=== PATIENT | male | born 1980 | race Caucasian/White ===

== ENCOUNTER 2022-06-20 07:04 | Outpatient (CLI) | payer OTHER, SELFPAY ==
--- NOTE | 2022-06-20 07:23 | MR_ITS ---
WS: [id number] MRI RIGHT SHOULDER HISTORY: RT SHOULDER INJURY COMPARISON: None available. TECHNIQUE: Multiplanar sequences of the shoulder joint are submitted. Very minimal AC joint arthritis. Capsule appears intact. There is a very small amount of fluid in the subacromial bursa. There is also mild subacromial impingement by osteophyte along the distal undersu rface. No os acromion. Biceps tendon in normal position. Well-circumscribed T2 hyperintense lesion me asuring 8 mm in the humeral head is probably an enchondroma. No rotator cuff edema or tear. There is no muscle atrophy or edema. Glenohumeral joint is normal. No labral tears are identified. Although incompletely imaged there is edema within the pectoralis muscles of the RIGHT chest wall. Th e tendon is not well-visualized as this study was targeted to the shoulder. MR/MR shoulder RT wo con* [id number] IMPRESSION: 1. No rotator cuff tear. 2. Mild subacromial impingement by a small osteophyte. 3. Pectoralis muscle edema. Contusion type injury centered within the pectoral is muscle of the RIGHT chest wall. Only a small portion of the pectoralis muscl e as visualized but there is edema throughout the muscle.
== END 2022-06-20 07:05 | disposition home or self-care (01) ==
PROVIDERS: PCP Family Medicine; Visit Provider Family Medicine
DX: M25.511 Pain in right shoulder (principal); M25.811 Other specified joint disorders, right shoulder
CPT/HCPCS: 73221

== ENCOUNTER 2022-11-20 12:52 | Emergency (ER) | payer OTHER, SELFPAY ==
[2022-11-20 13:13] VITALS: BP 116/75; PULSE 68; TEMP 36.4; O2SAT 95; BMI 27.2
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
[2022-11-20 14:19] VITALS: BP 128/93; PULSE 76; O2SAT 98
--- NOTE | 2022-11-21 09:10 | DCPLANNER ---
follow up manager had message to schedule a follow up appointment for patient with neurology. follow up manager sent patients information to the front office staff at neurology. Patients information will be printed and reviewed. Clinic will call patient with appointment information.
== END 2022-11-20 14:21 | disposition home or self-care (01) ==
PROVIDERS: Emergency Provider Physician Assistant; PCP Family Medicine
DX: R51.9 Headache, unspecified (principal)
CPT/HCPCS: 99282

== ENCOUNTER 2023-03-03 06:48 | Outpatient (CLI) | payer OTHER, SELFPAY ==
--- NOTE | 2023-03-03 07:15 | MR_ITS ---
WS: [id number] MRI HEAD WITH CONTRAST TECHNIQUE: Sagittal T1, T2 axial, T2 axial FLAIR, axial susceptibility weighted imaging, axial diffus ion weighted images, and coronal T2 images were obtained. Pre and post-T1 axial and post T1 coronal i mages. ADC and FSPGR images. CLINICAL INFORMATION: R51.9 - Headache, unspecified COMPARISON: None. FINDINGS: No evidence of restricted diffusion to suggest acute ischemia. Normal posterior fossa. Normal vascula r flow voids at the skull base. No extra-axial fluid collections. Mild mucosal thickening in the para nasal sinuses. Secretions within the RIGHT maxillary sinus. Mastoid air cells are well aerated. Astrid l posterior nasopharynx. No hemosiderin on susceptibly weighted images. Normal optic chiasm and pituitary infundibulum. Tempor al lobes and hippocampal formations are normal in appearance. No abnormal gadolinium enhancement. Nor mal optic chiasm and pituitary infundibulum. Normal dural venous sinuses. IMPRESSION: 1. No evidence of restricted diffusion to suggest acute ischemia. 2. No suspicious intracranial signal normalities. 3. No hemosiderin on susceptibly weighted images. 4. No abnormal gadolinium enhancement. 5. Mild to moderate paranasal sinusitis. 6. Mastoid air cells well aerated.
[2023-03-03] MEDS: gadobenate dimeglumine 20 mL vial IV (08:25)
== END 2023-03-03 06:49 | disposition home or self-care (01) ==
LOC: RAD 06:48
PROVIDERS: PCP Family Medicine; Visit Provider Psychiatry & Neurology Neurology
DX: R51.9 Headache, unspecified (principal); J32.8 Other chronic sinusitis
CPT/HCPCS: 70553; A9577

== ENCOUNTER 2023-06-05 09:08 | Outpatient (CLI) | payer OTHER, SELFPAY ==
--- NOTE | 2023-06-05 09:00 | CT_ITS ---
WS: [id number] CT PARANASAL SINUSES HISTORY: Nasal Congestion TECHNIQUE: Contiguous 2.5 mm axial images obtained through the sinuses. Images are reconstructed in s agittal and coronal planes. All CT scans at [facility] use at least one of these dose optimiz ation techniques: automated exposure control; mA and/or kV adjustment per patient size (includes targ eted exams where dose is matched to clinical indication); or iterative reconstruction. DLP: 382.44 mGy.cm COMPARISON: None available. Frontal sinuses: No air-fluid levels. 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 Osteoma tends towards th e LEFT. Sphenoid sinus: Negative. Ethmoid sinuses: Negative. Maxillary sinus: Very small mucous retention cyst in the floor the LEFT maxillary sinus. Small septa extending through the maxillary sinuses close to the ostiomeatal units. No obstruction. Ostiomeatal unit: Patent. No obstruction. Normal cribriform plate. Nasal bones are negative. No mastoid air cell disease. IMPRESSION: 1. No significant sinus disease. No air-fluid levels. 2. Very small mucous retention cyst floor the LEFT maxillary sinus. 3. Patent ostiomeatal units.
== END 2023-06-05 09:09 | disposition home or self-care (01) ==
LOC: RAD 09:08
PROVIDERS: PCP Family Medicine; Visit Provider Otolaryngology
DX: J34.2 Deviated nasal septum (principal); J32.9 Chronic sinusitis, unspecified
CPT/HCPCS: 70486

== ENCOUNTER 2024-02-03 09:17 | Outpatient (CLI) | payer OTHER, SELFPAY ==
--- NOTE | 2024-02-03 09:15 | MR_ITS ---
WS: [id number] MRA CAROTID WITHOUT AND WITH GADOLINIUM ENHANCEMENT TECHNIQUE: Axial 2-D TOF and gadolinium bolus images obtained with axial images and axial, sagittal, and coronal 2-D reformatted images. CLINICAL INFORMATION: R20.0 - Anesthesia of skin COMPARISON: None. FINDINGS: RIGHT: RIGHT common carotid artery is patent. No significant RIGHT ICA stenosis. RIGHT ICA is patent to the skull base. LEFT: LEFT common carotid artery is patent. No significant LEFT ICA stenosis. LEFT ICA is patent to t he skull base. LEFT dominant vertebral artery. Smaller but patent RIGHT vertebral artery. Proximal basilar artery is patent. MR/MR angio neck w con* [id number] IMPRESSION: Normal neck MRA.
--- NOTE | 2024-02-03 10:00 | MR_ITS ---
WS: [id number] MRA HEAD TECHNIQUE: Axial 3-D TOF images obtained with axial images and axial, sagittal, and coronal 2-D refor matted images. CLINICAL INFORMATION: R20.0 - Anesthesia of skin COMPARISON: None. FINDINGS: Distal vertebral arteries are patent. Basilar artery is patent. Normal vascularity to the COUPLING MACHINE OPERATOR territo ry bilaterally. Both ICAs are patent at the skull base. Tiny RIGHT A1 segment. Normal vascularity to the TOM and MCA territories bilaterally. No evidence of proximal flow-limiting stenosis or aneurysm. MR/MR angio head con [id number] IMPRESSION: 1. Normal intracranial MRA.
[2024-02-03] MEDS: gadobenate dimeglumine 20 mL vial 19 ML IV (10:03)
== END 2024-02-03 09:18 | disposition home or self-care (01) ==
LOC: RAD 09:18
PROVIDERS: PCP Family Medicine; Visit Provider Psychiatry & Neurology Neurology
DX: R20.0 Anesthesia of skin (principal); R20.2 Paresthesia of skin
CPT/HCPCS: 70544; 70548

== ENCOUNTER 2024-08-31 11:49 | Emergency (ER) | payer OTHER, SELFPAY ==
--- OUTSIDE RECORDS SUMMARY | 2024-08-31 06:50 | XMS_ITS | Encounter Summary ---
Author Name [facility] Address [address] [place] [address] Care Team Providers Care Detail Sergeant Name Role Phone IKE KAYE Primary Care Provider Unavail able Selected Encounter This section includes the information on record at [facility] for the Encounter. Date/Time Encounter Type Encounter Description Reason Pro vider Source Aug 31, 2024 11:50 AM Outpatient Encounter TELEPHONE TRIAGE [facility] Encounter Template Text not used by [facility] Plan of Treatment: Future Appointments (+ 6 months) and Future Tests (+/- 45 days) The Plan of Treatment section includes future care activities for the patient from all [facility] treatmentfacilities. This section includes future appointments and future orders which are active, pending or scheduled. Future Appointments This section includes appointments that were scheduled to occur 6 months from the date of the Encounter, up to a maximum of 20 appointments. The data comes from all [facility] treatment facilities. Appointment Date/Time Appointment Type Appointme nt Facility Name Sep 15, 2024 09:30 AM AMBULATORY - MEDICINE [facility] Encounter Notes: All associated encounter notes This section contains the clinical notes associated to the Encounter. Date/Time Encounter Note(s) Provider Source Aug 31, 2024 11:50 AM RN PROGRESS NOTE: LOCAL TITLE: CCC: CLINICAL TRIAGE STANDARD TITLE: RN PROGRESS NOTE DATE OF NOTE: AUG 31, 2024@11:50:25 ENTRY DATE: AUG 31, 2024@11:50:26 AUTHOR: PRACHT,KAHLA M EXP COSIGNER: URGENCY: STATUS: COMPLETED Caller Verification Call Back Number: [phone] Caller/Recipient Relation to Patient: Self Caller Name: ADRIAN ALARCON Emergency Contact: JIMMY ALARCON Triage Summary Conducted triage/discussed symptoms Utilized the Triage Tool: Yes Chief Complaint: Ankle Injury Nurse's Recommendation / WHEN: Now Nurse's Recommendation / WHERE: ED Other Nursing Plan and Disposition Referred patient to higher level of care Instructed to go to Emergency Room (ER) Advised of Financial Disclaimer: Patient advised that recommendation for care provided during the call does not constitute an approval or authorization for payment by the [facility] or its staff. Patient advised to report a community ED visit to the [facility] Office of Community Care at within 72 hours. Other course(s) of action Generated msg to PACT/Provider Nurse Summary Nurse Summary: says he was playing tether ball and stepped in a 3-4 hole and heard his ankle pop. He said his left ankle is swelling. He rates his pain a 6/10 and says it is difficult to bar weight on his left ankle. He is wanting to go to the nearest ER. The [facility] ER is more than an hour away. Provided the National reporting number for going outside the [place] . Clinical Contact Center Codes Clinic/Location: 5 PB PHONE [facility] RN Decision Support System Output: Triage Complete Triage Date: 08/31/2024, 11:40 AM Triage Note: Decision Support Tool Used: ClearTriage Protocol Used: Ankle Injury Protocol-Based Disposition: See Provider within 24 Hours Video visit offered and caller accepted Positive Triage Question: * [1] MODERATE pain (e.g., interferes with normal activities, limping) AND [2] high-risk adult (e.g., age > 60 years, osteoporosis, chronic steroid use) Care Advice Discussed: * Use a Cold Pack for Pain, Swelling, or Bruising * Use Heat on Area After 48 Hours * Elevate the Injured Ankle * Limit Weight-Bearing on Injured Ankle - Try not to put any weight on the injured ankle. - Reason: To prevent pain and in case there is a more serious injury. * Reasons To Call Back - You become worse Negative Triage Questions: * Serious injury with multiple fractures (broken bones) * [1] Major bleeding (e.g., actively dripping or spurting) AND [2] can't be stopped * Amputation * Bone sticking through the skin * Looks like a dislocated joint (very crooked or deformed) * Sounds like a life-threatening emergency to the triager * Bullet wound, stabbed by knife, or other serious penetrating wound * Skin is split open or gaping (or length > 1/2 inch or 12 mm) * [1] Bleeding AND [2] won't stop after 10 minutes of direct pressure (using correct technique) * [1] Dirt in the wound AND [2] not removed with 15 minutes of scrubbing * Can't stand (bear weight) or walk * Sounds like a serious injury to the triager * [1] New numbness (loss of sensation) of foot or toe(s) AND [2] present now * [1] SEVERE pain (e.g., excruciating) AND [2] not improved 2 hours after pain medicine/ice packs IMPORTANT: This note was created by [facility] Clinical Contact Center staff. Please do not alert the staff member by adding them as a signer for future communications. Alerts are not monitored by this user. /es/ GERA GOLD RN Signed: 08/31/2024 11:50 Receipt Acknowledged By: 08/31/2024 11:54 /es/ [facility] 08/31/2024 11:51 /es/ Melissa Panchal RN [place] [facility], [facility] [place] [facility]
--- NOTE | 2024-08-31 11:51 | XR_ITS ---
WS: [id number] Exam: XR ankle LT min 3V* [id number] Date/Time of Exam: 08/31/2024 11:51 AM Reason For Exam: injury No fracture. Lateral soft tissue swelling. The ankle mortise is equidistant. XR/XR ankle LT min 3V* [id number] IMPRESSION: 1. Lateral soft tissue swelling-no acute fracture.
[2024-08-31 11:58] VITALS: BP 124/73; PULSE 70; RESP 16; TEMP 36.3; O2SAT 97; BMI 27.1
--- OUTSIDE RECORDS SUMMARY | 2024-08-31 12:30 | XMS_ITS | Continuity of Care Document ---
Author Name [facility] Organization [facility] Care Team Providers Care Floor Layer Apprentice Name Role Phone [facility] Unavailable Unavailable Problems Combined list of problems from Department of [facility] and [facility] facilities. It does not include entries that were removed or entered in error. Problem Status Onset Date Problem Type Date of Resolution Comments Source Allergic Rhinitis ([facility] [id number]) Active Condition [facility] [place] [facility]xiety ([facility] [id number]) Active Condition [facility] [place] [facility] Depression ([facility] 45361077) Active Condition [facility] Insomnia Active [place] [facility] Lumbar radiculopathy Active [place] [facility] Migraine Active Condition [facility] Sciatica Active Condition [facility] Sleep apnea Active Condition [facility] Tinnitus Active Condition [facility] Chronic post-traumatic stress disorder Inactive Condition 04/24/2024 [facility] [place] [facility] Diagnosis: ICD-10-CM F33.0 Major depressive disorder, recurrent, mild Active Diagnosis [facility] Diagnosis: ICD-10-CM F32.A Depression, unspecified Active Diagnosis [facility] Diagnosis: ICD-10-CM F33.1 Major depressive disorder, recurrent, moderate Active Diagnosis [facility] Medications Combined list of outpatient medications from Department of [facility] and [facility] facilities.Medications provided include 1) outpatient medications from the last 15 months, and 2) patient-reported medications. Medication Details Route Status Patient Instructions Prescription Expires Prescription Number Last Dispense Date Ordering Provider Order Date Order Qty Source ALPRAZOLAM 0.5MG TAB TAKE ONE TABLET BY MOUTH TWICE DAILY NEEDED FOR ANXIETY ORAL DISCONT INUED BY PROVIDE R 10/25/2024 [id number] 5 Carli KAYE R 2024 60 [facility] BUPROPION HCL 150MG 24HR TAB,SA TAKE ONE TABLET BY MOUTH ONCE A DAY FOR DEPRESSI ON SWALLOW WHOLE - DO NOT CRUSH OR CHEW. ORAL ACTIVE 04/25/2025 [id number] Carli KAYE R 2024 90 [facility] BUPROPION HCL SR (bupropion HCl), 150 MG, TAB SR 12H, ORAL, [employer] 100 ea. BOTTLE Active [id number] 2023 30 Pharmac y Data Transac tion Service Facilit y BUPROPION HCL SR (bupropion HCl), 150 MG, TAB SR 12H, ORAL, [employer], 100 ea. BOTTLE Cancele d [id number] : 2023 0 Pharmac y Data Transac tion Service Facilit y CHOLECALCIF JEROD 10MCG (400UNIT) TAB TAKE ONE TABLET BY MOUTH ONCE A DAY FOR VITAMIN D DEFICIEN CY ORAL HOLD 04/30/2025 [id number] 5 Carli KAYE R 2024 100 [facility] CHOLECALCIF JEROD 50MCG (2,000UNIT) TAB TAKE TWO TABLETS BY MOUTH ONCE A DAY FOR VITAMIN D DEFICIEN CY ORAL ACTIVE 05/05/2025 [id number] Isela CARBAJAL Q 2024 200 [facility] EMGALITY PEN (galcanezum ab-gnlm), 120 MG/ML, PEN INJCTR, SUBCUT, [employer] 1 ml SYRINGE Active [id number] 2023 1 Pharmac y Data Transac tion Service Facilit y EMGALITY PEN (galcanezum ab-gnlm), 120 MG/ML, PEN INJCTR, SUBCUT, [employer] 1 ml SYRINGE Active [id number] 2023 1 Pharmac y Data Transac tion Service Facilit y EMGALITY PEN (galcanezum ab-gnlm), 120 MG/ML, PEN INJCTR, SUBCUT, [employer] 1 ml SYRINGE Active [id number] 2023 2 Pharmac y Data Transac tion Service Facilit y ERGOCALCIFE ROL 1,250MCG (50,000UNIT ) CAP TAKE ONE CAPSULE BY MOUTH EVERY WEEK FOR VITAMIN D DEFICIEN CY ORAL 08/02/2024 [id number] Isela CARBAJAL OHN Q 2024 12 [facility] FLUTICASONE PROPIONATE 50MCG/SPRAY SOLN,NASAL, 16GM INSTILL 1 SPRAY IN NOSTRIL( S) ONCE A DAY FOR RHINITIS (MUST BE USED DIRECTED FOR MINIMUM OF 21 DAYS TO PROVIDE ADEQUATE BENEFITS ) NASAL ACTIVE 04/25/2025 [id number] 5 Carli KAYE R 2024 3 [facility] FOLIC ACID 1MG TAB TAKE ONE TABLET BY MOUTH ONCE A DAY FOR FOLIC ACID SUPPLEME NTATION ORAL ACTIVE 05/05/2025 [id number] 5 Isela CARBAJALN Q 2024 100 [facility] GABAPENTIN (GABAPENTIN ), 300 MG, CAPSULE, ORAL, ACTACustora PHARMA,, 500 ea. BOTTLE Active [id number] 2023 90 Pharmac y [facility] Service [facility]ilit y GABAPENTIN 300MG CAP TAKE ONE CAPSULE BY MOUTH THREE TIMES A DAY NEEDED FOR NERVE PAIN ORAL ACTIVE 04/25/2025 [id number] 5 Carli KAYE R 2024 270 [facility] HYDROXYZINE HCL (hydroxyzin e HCl), 25 MG, TABLET, ORAL, RISING [employer]ARM, 1000 ea. BOTTLE Active [id number] 2023 120 Pharmac y Data Trans[facility] tion Service Facilit y HYDROXYZINE HCL 25MG TAB TAKE ONE TABLET BY MOUTH AT BEDTIME NEEDED FOR ANXIETY *MAY CAUSE DROWSINE SS* ORAL ACTIVE 04/25/2025 [id number] 5 Carli KAYE R 2024 90 [facility] PRAZOSIN HCL (prazosin HCl), 2 MG, CAPSULE, ORAL, AUROB[employer]O PHARM, 100 ea. BOTTLE Cancele d [id number] : 2023 0 Pharmac y Data Transac tion Service Facilit y PRAZOSIN HCL (prazosin HCl), 2 MG, CAPSULE, ORAL, LIFESTAR PHARMA, 1000 ea. BOTTLE Active [id number] 2023 60 Pharmac y Data Transac tion Service Facilit y PRAZOSIN HCL (prazosin HCl), 2 MG, CAPSULE, ORAL, NOVITIUM/AN I PH, 100 ea. BOTTLE Cancele d [id number] : 2023 0 Pharmac y Data Transac tion Service Facilit y PRAZOSIN HCL 2MG CAP TAKE THREE CAPSULES BY MOUTH AT BEDTIME FOR NIGHTMAR ES MAY CAUSE DIZZINES S OR DROWSINE SS. ORAL ACTIVE 07/19/2025 [id number] 5 GROVER DE LEON R 2024 270 [facility] PRAZOSIN HCL 2MG CAP TAKE TWO CAPSULES BY MOUTH AT BEDTIME NEEDED FOR NIGHTMAR ES MAY CAUSE DIZZINES S OR DROWSINE SS. ORAL DISCONT INUED (EDIT) 05/17/2025 [id number] 5 GROVER DE LEON R 2024 180 [facility] PRAZOSIN HCL 2MG CAP TAKE TWO CAPSULES BY MOUTH AT BEDTIME NEEDED FOR NIGHTMAR ES MAY CAUSE DIZZINES S OR DROWSINE SS. ORAL DISCONT INUED 05/17/2025 [id number] GROVER DE LEON R 2024 90 [facility] PRAZOSIN HCL 2MG CAP TAKE ONE CAPSULE BY MOUTH AT BEDTIME NEEDED FOR NIGHTMAR ES MAY CAUSE DIZZINES S OR DROWSINE SS. ORAL DISCONT INUED (EDIT) 04/25/2025 [id number] 5 Carli KAYE R 2024 90 [facility] PROPRANOLOL HCL (propranolo l HCl), 10 MG, TABLET, ORAL, AMNEAL PHARMACE, 1000 ea. BOTTLE Active [id number] 2023 60 Pharmac y Data Transac tion Service Facilit y PROPRANOLOL HCL (propranolo l HCl), 40 MG, TABLET, ORAL, AMNEAL PHARMACE, 1000 ea. BOTTLE Cancele d [id number] : 2023 0 Pharmac y Data Transac tion Service Facilit y PROPRANOLOL HCL (propranolo l HCl), 40 MG, TABLET, ORAL, AMNEAL PHARMACE, 1000 ea. BOTTLE Active [id number] 2023 180 Pharmac y Data Transac tion Service Facilit y SERTRALINE HCL (SERTRALINE HCL), 100MG, TABLET, ORAL, AUROBINDO PHARM, 500 ea. BOTTLE Active [id number] 2023 30 Pharmac y Data Transac tion Service Facilit y SERTRALINE HCL (SERTRALINE HCL), 100MG, TABLET, ORAL, AUROB[employer]O PHARM, 500 ea. BOTTLE Cancele d [id number] : 2023 0 Pharmac y Data Transac tion Service Facilit y SERTRALINE HCL 100MG TAB TAKE TWO TABLETS BY MOUTH EVERY MORNING FOR DEPRESSI ON AND ANXIETY ORAL ACTIVE 05/17/2025 [id number] GROVER DE LEON R 2024 180 [facility] SERTRALINE HCL 100MG TAB TAKE ONE-HALF TABLET BY MOUTH EVERY MORNING FOR DEPRESSI ON ORAL DISCONT INUED (EDIT) 04/25/2025 [id number] 5 Carli KAYE 2024 45 [facility] SUMATRIPTAN SUCCINATE (SUMATRIPTA N SUCCINATE), 100MG, TABLET, ORAL, AUROBINDO PHARM, 9 ea. BLIST PACK Active [id number] 2023 9 Pharmac y Data Transac tion Service Facilit y TIZANIDINE HCL 4MG TAB TAKE ONE TABLET BY MOUTH TWICE DAILY NEEDED FOR SPASTICI TY ORAL ACTIVE 04/25/2025 [id number] Carli KAYE R 2024 180 [facility] TRAZODONE HCL 100MG TAB TAKE ONE TABLET BY MOUTH AT BEDTIME FOR INSOMNIA ORAL ACTIVE 04/25/2025 [id number] 5 Carli KAYE R 2024 90 [facility] Immunizations Combined list of available immunizations from the Department of Defense and Veterans Affairs facilities. Immunization Series Date Given Administered By Site Reaction Lot Number CVX Code Drug Combination Presser Status Comments Source influenza, injectable, quadrivalent- pf 2022 [id number] Unknown complet ed influenza , injectabl e, quadrival ent-pf 12/26/22 Given Ambulat ory Pharmac y influenza, injectable, quadrivalent- pf 2021 [id number] 150 Unknown complet ed influenza , injectabl e, quadrival ent-pf 01/16/22 Given Ambulat ory Pharmac y influenza virus vaccine, inactivated 2021 [id number] [facility] ed influenza virus vaccine, inactivat ed 03/28/21 Given Ambulat ory Pharmac y influenza, injectable, quadrivalent- pf 2021 150 complet ed influenza , injectabl e, quadrival ent-pf 03/28/21 Given Ambulat ory Pharmac y influenza, injectable, quadrivalent, preservative free 2021 FRANCINE, () Not Given influenza , injectabl e, quadrival ent, preservat virgen free DoD INFLUENZA, SPLIT VIRUS, QUADRIVALENT, PF 6 2021 150 complet ed HISTORICA L INFORMATI ON - FROM OTHER REGISTRY, [facility] Influenza, inj, MDCK, quadrivalent- pf 2021 171 complet ed Influenza , inj, MDCK, quadrival ent-pf 03/22/21 Given Ambulat ory Pharmac y Influenza, injectable, MDCK, preservative free, quadrivalent 2021 SHRUTHI, () Not Given Influenza , injectabl e, MDCK, preservat virgen free, quadrival ent DoD influenza virus vaccine, inactivated 2019 [id number] Unknown complet ed influenza virus vaccine, inactivat ed 12/22/19 Given Ambulat ory Pharmac y influenza, injectable, quadrivalent- pf 2019 150 complet ed influenza , injectabl e, quadrival ent-pf 12/20/19 Given Ambulat ory Pharmac y influenza, injectable, quadrivalent, preservative free 2019 LUKE, () Not Given influenza , injectabl e, quadrival ent, preservat virgen free DoD INFLUENZA, RECOMBINANT, QUADRIVALENT, PF 5 2018 185 complet ed HISTORICA L INFORMATI ON - FROM OTHER [facility] influenza, injectable, quadrivalent- pf 2017 150 complet ed influenza , injectabl e, quadrival ent-pf 01/05/18 Given Ambulat ory Pharmac y Influenza, injectable, quadrivalent, preservative free 0 2017 150 (MVX) complet ed Influenza , injectabl e, quadrival ent, preservat virgen free DoD INFLUENZA, SPLIT VIRUS, QUADRIVALENT, PF 4 2017 150 complet ed HISTORICA L INFORMATI ON - FROM OTHER REGISTRY, [facility] influenza, injectable, quadrivalent 2017 [id number] 158 Unknown complet ed influenza , injectabl e, quadrival ent 12/02/17 Given Ambulat ory Pharmac y influenza, injectable, quadrivalent, contains preservative 1 2017 [id number] 158 Unknown (UNK) comple t ed influenza , injectabl e, quadrival ent, contains preservat virgen DoD influenza, injectable, quadrivalent 2017 [id number] 158 Unknown complet ed influenza , injectabl e, quadrival ent 11/23/17 Given Ambulat ory Pharmac y influenza, injectable, quadrivalent, contains preservative 1 2017 [id number] 158 Unknown (UNK) comple t ed influenza , injectabl e, quadrival ent, contains preservat virgen DoD influenza, seasonal, injectable-pf 2016 [id number] 140 Unknown complet ed influenza , seasonal, injectabl e-pf 12/04/16 Given Ambulat ory Pharmac y Influenza, seasonal, injectable, preservative free 1 2016 [id number] 140 Unknown (UNK) comple t ed Influenza , seasonal, injectabl e, preservat virgen free DoD INFLUENZA, SPLIT VIRUS, QUADRIVALENT, PF 3 2016 150 complet ed HISTORICA L INFORMATI ON - FROM OTHER REGISTRY, [facility] influenza, seasonal, injectable-pf 2015 [id number] 140 Unknown complet ed influenza , seasonal, injectabl e-pf 01/27/16 Given Ambulat ory Pharmac y Influenza, seasonal, injectable, preservative free 1 2015 [id number] 140 Unknown (UNK) comple t ed Influenza , seasonal, injectabl e, preservat virgen free DoD influenza, injectable, quadrivalent- pf 2015 150 complet ed influenza , injectabl e, quadrival ent-pf 12/07/15 Given Ambulat ory Pharmac y influenza, injectable, quadrivalent- pf 2015 [id number] 150 Unknown complet ed influenza , injectabl e, quadrival ent-pf 12/07/15 Given Ambulat ory Pharmac y Influenza, injectable, quadrivalent, preservative free 1 2015 [id number] 150 Unknown (UNK) comple t ed Influenza , injectabl e, quadrival ent, preservat virgen free DoD influenza, injectable, quadrivalent, preservative free 2015 MIKAELA, () Not Given influenza , injectabl e, quadrival ent, preservat virgen free DoD INFLUENZA, SPLIT VIRUS, QUADRIVALENT, PF 2 2015 150 complet ed HISTORICA L INFORMATI ON - FROM OTHER REGISTRY, [facility] INFLUENZA, SPLIT VIRUS, TRIVALENT, PRESERVATIVE 1 2014 141 complet ed HISTORICA L INFORMATI ON - FROM OTHER REGISTRY, [facility] influenza, injectable, quadrivalent 2014 [id number] 158 sanofi pasteur complet ed influenza , injectabl e, quadrival ent 12/25/14 Given Ambulat ory Pharmac y influenza, injectable, quadrivalent, contains preservative 1 2014 [id number] 158 Sanofi Pasteur ([facility]) complet ed influenza , injectabl e, quadrival ent, contains preservat virgen DoD measles, mumps and rubella virus vaccine 2 2014 UNK 03 Unknown (UNK) Not Given measles, mumps and rubella virus vaccine DoD varicella virus vaccine 1 2014 UNK 21 Unknown (UNK) Not Given varicella virus vaccine DoD influenza, injectable, quadrivalent- pf 2013 150 complet ed influenza , injectabl e, quadrival ent-pf 01/09/14 Given Ambulat ory Pharmac y influenza, injectable, quadrivalent- pf 2013 150 complet ed influenza , injectabl e, quadrival ent-pf 01/09/14 Given Ambulat ory Pharmac y Influenza, injectable, quadrivalent, preservative free 0 2013 150 (MVX) complet ed Influenza , injectabl e, quadrival ent, preservat virgen free DoD influenza, injectable, quadrivalent, preservative free 2013 HAIDER SARAVIA () Not Given influenza , injectabl e, quadrival ent, preservat virgen free DoD influenza, seasonal, injectable-pf 2012 UNK 140 Unknown complet ed influenza , seasonal, injectabl e-pf 01/12/13 Given Ambulat ory Pharmac y Influenza, seasonal, injectable, preservative free 1 2012 UNK 140 Unknown (UNK) comple t ed Influenza , seasonal, injectabl e, preservat virgen free DoD influenza, seasonal, injectable-pf 2011 [id number] 140 Unknown complet ed influenza , seasonal, injectabl e-pf 01/11/12 Given Ambulat ory Pharmac y tetanus, diphtheria, acellular pertu is 2011 [id number] 115 Unknown complet ed tetanus, diphtheri a, acellular pertussis 01/11/12 Given Ambulat ory Pharmac y tetanus toxoid, reduced diphtheria toxoid, and acellular pertu is vaccine, adsorbed 1 2011 [id number] 115 Unknown (UNK) comple t ed tetanus toxoid, reduced diphtheri a toxoid, and acellular pertussis vaccine, adsorbed DoD Influenza, seasonal, injectable, preservative free 1 2011 [id number] 140 Unknown (UNK) comple t ed Influenza , seasonal, injectabl e, preservat virgen free [facility] influenza virus vaccine,split 2010 UNK 15 Unknown complet ed influenza virus vaccine,s plit 04/10/10 Given Ambulat ory Pharmac y influenza virus vaccine, split virus (incl. purified surface antigen)-reti red CODE 1 2010 UNK 15 Unknown (UNK) comple t ed influenza virus vaccine, split virus (incl. purified surface antigen)- retired CODE DoD influenza virus vaccine,split 2009 UNK 15 Unknown complet ed influenza virus vaccine,s plit 12/08/09 Given Ambulat ory Pharmac y influenza virus vaccine, split virus (incl. purified surface antigen)-reti red CODE 1 2009 UNK 15 Unknown (UNK) comple t ed influenza virus vaccine, split virus (incl. purified surface antigen)- retired CODE [facility] Novel Influenza-H1N 1-09,live virus,nasal 2009 UNK 125 Unknown complet ed Novel Influenza -[id number], live virus,sundar al 10/11/09 Given Ambulat ory Pharmac y Novel Influenza-H1N 1-09, live virus for nasal administratio n 1 2009 UNK 125 Unknown (UNK) comple t ed Novel Influenza -[id number], live virus for nasal administr ation DoD hepatitis A adult vaccine 2008 UNK 52 Unknown complet ed hepatitis A adult vaccine 12/31/08 Given Ambulat ory Pharmac y HepB, Adult 2008 UNK 43 Unknown complet ed HepB, Adult 12/31/08 Given Ambulat ory Pharmac y hepatitis B vaccine, adult dosage 3 2008 UNK 43 Unknown (UNK) comple t ed hepatitis B vaccine, adult dosage DoD hepatitis A vaccine, adult dosage 2 2008 UNK 52 Unknown (UNK) comple t ed hepatitis A vaccine, adult dosage DoD tuberculin purified protein derivative 2002 UNK 96 Unknown complet ed tuberculi n purified protein derivativ e 07/11/02 Given Ambulat ory Pharmac y anthrax vaccine 2002 [id number] [employer] complet ed anthrax vaccine 07/05/02 Given Ambulat ory Pharmac y anthrax vaccine 2 2002 [id number] 24 [employer] [place] ([facility]) complet ed anthrax vaccine DoD tuberculin purified protein derivative 2002 UNK 96 Unknown complet ed tuberculi n purified protein derivativ e 05/28/02 Given Ambulat ory Pharmac y vaccinia (smallpox) vaccine 2002 [id number] [employer] complet ed vaccinia (smallpox ) vaccine 05/28/02 Given Ambulat ory Pharmac y vaccinia (smallpox) vaccine 0 2002 [id number] 75 [facility] ([facility]) complet ed vaccinia (smallpox ) vaccine DoD anthrax vaccine 2002 [id number] [employer] complet ed anthrax vaccine 05/07/02 Given Ambulat ory Pharmac y anthrax vaccine 1 2002 [id number] 24 [employer] [place] ([facility]) complet ed anthrax vaccine DoD yellow fever vaccine 2002 [id number] 37 sanofi pasteur complet ed yellow fever vaccine 04/09/02 Given Ambulat ory Pharmac y influenza virus vaccine,split 2002 [id number] 15 sanofi pasteur complet ed influenza virus vaccine,s plit 04/09/02 Given Ambulat ory Pharmac y HepB, Adult 2002 [id number] 43 GlaxoSmithKli ne complet ed HepB, Adult 04/09/02 Given Ambulat ory Pharmac y influenza virus vaccine, split virus (incl. purified surface antigen)-reti red CODE 0 2002 [id number] 15 Sanofi Pasteur ([facility]) complet ed influenza virus vaccine, split virus (incl. purified surface antigen)- retired CODE DoD yellow fever vaccine 0 2002 [id number] 37 Sanofi Pasteur ([facility]) complet ed yellow fever vaccine DoD hepatitis B vaccine, adult dosage 2 2002 [id number] C6 43 SmithKline ([facility]) complet ed hepatitis B vaccine, adult dosage DoD hepatitis A adult vaccine 2002 [id number] 52 GlaxoSmithKli ne complet ed hepatitis A adult vaccine 03/13/02 Given Ambulat ory Pharmac y tetanus-dipht h toxoids (Td) adult/adol 2002 [id number] 09 sanofi pasteur complet ed tetanus-d iphth toxoids (Td) adult/ado l 03/13/02 Given Ambulat ory Pharmac y typhoid Vi capsular polysaccharid e vac 2002 [id number] 101 sanofi pasteur complet ed typhoid Vi capsular polysacch aride vac 03/13/02 Given Ambulat ory Pharmac y HepB, Adult 2002 [id number] D6 43 GlaxoSmithKli ne complet ed HepB, Adult 03/13/02 Given Ambulat ory Pharmac y tetanus and diphtheria toxoids, adsorbed, preservative free, for adult use (2 Lf of tetanus toxoid and 2 Lf of diphtheria toxoid) 0 2002 [id number] 09 Sanofi Pasteur ([facility]) complet ed tetanus and diphtheri a toxoids, adsorbed, preservat virgen free, for adult use (2 Lf of tetanus toxoid and 2 Lf of diphtheri a toxoid) DoD hepatitis B vaccine, adult dosage 1 2002 [id number] D6 43 [employer]Kline ([facility]) complet ed hepatitis B vaccine, adult dosage DoD hepatitis A vaccine, adult dosage 1 2002 [id number] 52 [employer] ([facility]) complet ed hepatitis A vaccine, adult dosage DoD typhoid Vi capsular polysaccharid e vaccine 0 2002 [id number] 101 Sanofi Pasteur ([facility]) complet ed typhoid Vi capsular polysacch aride vaccine DoD measles/mumps /rubella virus vaccine 2000 UNK 03 Unknown complet ed measles/m umps/rube lla virus vaccine 08/14/00 Given Ambulat ory Pharmac y meningococcal polysaccharid e (MPSV4) 2000 UNK 32 Unknown complet ed meningoco ccal polysacch aride (MPSV4) 08/14/00 Given Ambulat ory Pharmac y poliovirus vaccine, inactivated 2000 UNK 10 Unknown complet ed polioviru s vaccine, inactivat ed 08/14/00 Given Ambulat ory Pharmac y measles, mumps and rubella virus vaccine 0 2000 UNK 03 Unknown (UNK) comple t ed measles, mumps and rubella virus vaccine DoD poliovirus vaccine, inactivated 0 2000 UNK 10 Unknown (UNK) comple t ed polioviru s vaccine, inactivat ed DoD meningococcal polysaccharid e vaccine (MPSV4) 0 2000 UNK 32 Unknown (UNK) comple t ed meningoco ccal polysacch aride vaccine (MPSV4) DoD Results Combined list of recent chemistry, hematology and other laboratory results from Department of Defense and Veterans Affairs, ranging from 15 months to all on record, depending upon the facility. Order Name Results Value Reference Range Date Interpretation Specimen Comments Source CHOLESTEROL PANEL (PB) CHOLESTEROL [MASS/VOLUME] IN SERUM OR PLASMA 212 mg/dL 0 - 200 04/13 H Specimen Type: PLASMA No comment entered. Ordering Provider: KYARA PATEL Report Released Date/Time : Apr 12, 2024 03:23 PM Reporting Lab: [place] [facility] [address] [place] [address] Yakov mills Lab: [place] [facility] [address] [place] [address] [facility] CHOLESTEROL PANEL (PB) TRIGLYCERIDE [MASS/VOLUME] IN SERUM OR PLASMA 154 mg/dL 0 - 150 04/13 H Specimen Type: PLASMA No comment entered. Ordering Provider: KYARA PATEL Report Released Date/Time : Apr 12, 2024 03:23 PM Reporting Lab: [place] [facility] [address] [place] [address] Performin g Lab: [place] [facility] [address] [place] [address] [facility] CHOLESTEROL PANEL (PB) CHOLESTEROL IN LDL [MASS/VOLUME] IN SERUM OR PLASMA BY CALCULATION 141.8 mg/dL 04/13 Specimen Type: PLASMA No comment entered. Ordering Provider: KYARA PATEL Report Released Date/Time : Apr 12, 2024 03:23 PM Reporting Lab: [place] [facility] [address] [place] [address] Performin g Lab: [place] [facility] [address] [place] [address] [facility] CHOLESTEROL PANEL (PB) CHOLESTEROL IN HDL [MASS/VOLUME] IN SERUM OR PLASMA 39.4 mg/dL 40 04/13 L Specimen Type: PLASMA No comment entered. Ordering Provider: KYARA PATEL Report Released Date/Time : Apr 12, 2024 03:23 PM Reporting Lab: [place] [facility] [address] [place] [address] Performin g Lab: [place] [facility] [address] [place] [address] [facility] CHOLESTEROL PANEL (PB) CHOLESTEROL IN HDL/CHOLESTER OL.TOTAL [MASS RATIO] IN SERUM OR PLASMA 18.6 25 04/13 Specimen Type: PLASMA No comment entered. Ordering Provider: KYARA PATEL Report Released Date/Time : Apr 12, 2024 03:23 PM Reporting Lab: [place] [facility] [address] [place] [address] Performin g Lab: [place] [facility] [address] [place] [address] [facility] VITAMIN D, 25-HYDROXY 25-HYDROXYVIT RODRIGUEZ D3 [MASS/VOLUME] IN SERUM OR PLASMA 16.5 ng/mL 30 - 96 04/13 L Specimen Type: SERUM No comment entered. Ordering Provider: KYARA PATEL Report Released Date/Time : Apr 12, 2024 03:23 PM Reporting Lab: [place] [facility] [address] [place] [address] Performin g Lab: [place] [facility] [address] [place] [address] [facility] TSH (MA-PB) THYROTROPIN [UNITS/VOLUME ] IN SERUM OR PLASMA 1.153 u[IU]/ mL 0.47 - 5 04/13 Specimen Type: SERUM No comment entered. Ordering Provider: KYARA PATEL Report Released Date/Time : Apr 12, 2024 03:23 PM Reporting Lab: [place] [facility] [address] [place] [address] Performin g Lab: [place] [facility] [facility] [address] [place] [address] [facility] CBC LEUKOCYTES [#/VOLUME] IN BLOOD BY AUTOMATED COUNT 5.2 10*3/u L 3.6 - 11.2 04/13 Specimen Type: BLOOD No comment entered. Ordering Provider: KYARA PATEL Report Released Date/Time : Apr 12, 2024 03:23 PM Reporting Lab: [place] [facility] [address] [place] [address] Performin g Lab: [place] [facility] [address] [place] [address] [facility] CBC ERYTHROCYTES [#/VOLUME] IN BLOOD BY AUTOMATED COUNT 5.48 10*6/u L 4.10 - 5.70 04/13 Specimen Type: BLOOD No comment entered. Ordering Provider: KYARA PATEL Report Released Date/Time : Apr 12, 2024 03:23 PM Reporting Lab: [place] [facility] [address] [place] [address] Performin g Lab: [place] [facility] [address] [place] [address] [facility] CBC HEMOGLOBIN [MASS/VOLUME] IN BLOOD 16.5 g/dL 13.1 - 16.8 04/13 Specimen Type: BLOOD No comment entered. Ordering Provider: KYARA PATEL Report Released Date/Time : Apr 12, 2024 03:23 PM Reporting Lab: [place] [facility] [address] [place] [address] Performin g Lab: [place] [facility] [address] [place] [address] 8 [facility] CBC HEMATOCRIT [VOLUME FRACTION] OF BLOOD 48.5 38.2 - 48.4 04/13 H Specimen Type: BLOOD No comment entered. Ordering Provider: KYARA PATEL Report Released Date/Time : Apr 12, 2024 03:23 PM Reporting Lab: [place] [facility] [address] [place] [address] Performin g Lab: [place] [facility] [address] [place] [phone] [facility] CBC MCV [ENTITIC VOLUME] BY AUTOMATED COUNT 88.5 fL 80.0 - 100.0 04/13 Specimen Type: BLOOD No comment entered. Ordering Provider: KYARA PATEL Report Released Date/Time : Apr 12, 2024 03:23 PM Reporting Lab: [place] [facility] [address] [place] [address] Performin g Lab: [place] [facility] [address] [place] [address] [facility] CBC MCH [ENTITIC MASS] BY AUTOMATED COUNT 30.1 pg 27.0 - 34.0 04/13 Specimen Type: BLOOD No comment entered. Ordering Provider: KYARA PATEL Report Released Date/Time : Apr 12, 2024 03:23 PM Reporting Lab: [place] [facility] [address] [place] [address] 8 Performin g Lab: [place] [facility] [address] [place] [phone] 8 [facility] CBC MCHC [MASS/VOLUME] BY AUTOMATED COUNT 34.0 g/dL 33.0 - 36.0 04/13 Specimen Type: BLOOD No comment entered. Ordering Provider: KYARA PATEL Report Released Date/Time : Apr 12, 2024 03:23 PM Reporting Lab: [place] [facility] [address] [place] [address] 8 Performin g Lab: [place] [facility] [address] [place] [address] [facility] CBC PLATELETS [#/VOLUME] IN BLOOD BY AUTOMATED COUNT 255 10*3/u L 150 - 400 04/13 Specimen Type: BLOOD No comment entered. Ordering Provider: KYARA PATEL Report Released Date/Time : Apr 12, 2024 03:23 PM Reporting Lab: [place] [facility] [address] [place] [address] 8 Performin g Lab: [place] [facility] [address] [place] [address] [facility] CBC PLATELET MEAN VOLUME [ENTITIC VOLUME] IN BLOOD BY AUTOMATED COUNT 9.0 fL 7.5 - 11.2 04/13 Specimen Type: BLOOD No comment entered. Ordering Provider: KYARA PATEL Report Released Date/Time : Apr 12, 2024 03:23 PM Reporting Lab: [place] [facility] [address] [place] [address] 8 Performin g Lab: [place] [facility] [address] [place] [address] [facility] CBC ERYTHROCYTE DISTRIBUTION WIDTH [RATIO] BY AUTOMATED COUNT 13.0 11.8 - 15.1 04/13 Specimen Type: BLOOD No comment entered. Ordering Provider: KYARA PATEL Report Released Date/Time : Apr 12, 2024 03:23 PM Reporting Lab: [place] [facility] [address] [place] [address] Performin g Lab: [place] [facility] [address] [place] [address] [facility] CBC LYMPHOCYTES/1 00 LEUKOCYTES IN BLOOD BY AUTOMATED COUNT 34.0 04/13 Specimen Type: BLOOD No comment entered. Ordering Provider: KYARA PATEL Report Released Date/Time : Apr 12, 2024 03:23 PM Reporting Lab: [place] [facility] [address] [place] [address] Performin g Lab: [place] [facility] [address] [place] [address] [facility] CBC MONOCYTES/100 LEUKOCYTES IN BLOOD BY AUTOMATED COUNT 10.9 04/13 Specimen Type: BLOOD No comment entered. Ordering Provider: KYARA PATEL Report Released Date/Time : Apr 12, 2024 03:23 PM Reporting Lab: [place] [facility] [address] [place] [address] Performin g Lab: [place] [facility] [address] [place] [address] [facility] CBC NEUTROPHILS/1 00 LEUKOCYTES IN BLOOD BY AUTOMATED COUNT 49.2 04/13 Specimen Type: BLOOD No comment entered. Ordering Provider: KYARA PATEL Report Released Date/Time : Apr 12, 2024 03:23 PM Reporting Lab: [place] [facility] [address] [place] [address] 8 Performin g Lab: [place] [facility] [address] [place] [address] 8 [facility] CBC EOSINOPHILS/1 00 LEUKOCYTES IN BLOOD BY AUTOMATED COUNT 4.1 04/13 Specimen Type: BLOOD No comment entered. Ordering Provider: KYARA PATEL Report Released Date/Time : Apr 12, 2024 03:23 PM Reporting Lab: [place] [facility] [address] [place] [address] Performin g Lab: [place] [facility] [address] [place] [address] 8 [facility] CBC BASOPHILS/100 LEUKOCYTES IN BLOOD BY AUTOMATED COUNT 1.6 04/13 Specimen Type: BLOOD No comment entered. Ordering Provider: KYARA PATEL Report Released Date/Time : Apr 12, 2024 03:23 PM Reporting Lab: [place] [facility] [address] [place] [address] Performin g Lab: [place] [facility] [address] [place] [address] [facility] CBC LYMPHOCYTES [#/VOLUME] IN BLOOD BY AUTOMATED COUNT 1.75 10*3/u L 0.77 - 4.50 04/13 Specimen Type: BLOOD No comment entered. Ordering Provider: KYARA PATEL Report Released Date/Time : Apr 12, 2024 03:23 PM Reporting Lab: [place] [facility] [address] [place] [address] Performin g Lab: [place] [facility] [address] [place] [phone] 8 [facility] CBC MONOCYTES [#/VOLUME] IN BLOOD BY AUTOMATED COUNT 0.56 10*3/u L 0.19 - 0.8 04/13 Specimen Type: BLOOD No comment entered. Ordering Provider: KYARA PATEL Report Released Date/Time : Apr 12, 2024 03:23 PM Reporting Lab: [place] [facility] [address] [place] [address] Performin g Lab: [place] [facility] [address] [place] [phone] 8 [facility] CBC NEUTROPHILS [#/VOLUME] IN BLOOD BY AUTOMATED COUNT 2.54 10*3/u L 2.10 - 8.00 04/13 Specimen Type: BLOOD No comment entered. Ordering Provider: KYARA PATEL Report Released Date/Time : Apr 12, 2024 03:23 PM Reporting Lab: [place] [facility] [address] [place] [address] Performin g Lab: [place] [facility] [address] [place] [address] [facility] CBC EOSINOPHILS [#/VOLUME] IN BLOOD BY AUTOMATED COUNT 0.21 10*3/u L 0.00 - 0.60 04/13 Specimen Type: BLOOD No comment entered. Ordering Provider: KYARA PATEL Report Released Date/Time : Apr 12, 2024 03:23 PM Reporting Lab: [place] [facility] [address] [place] [address] Performin g Lab: [place] [facility] [address] [place] [address] 8 [facility] CBC BASOPHILS [#/VOLUME] IN BLOOD BY AUTOMATED COUNT 0.08 10*3/u L 0.00 - 0.20 04/13 Specimen Type: BLOOD No comment entered. Ordering Provider: KYAAR PATEL Report Released Date/Time : Apr 12, 2024 03:23 PM Reporting Lab: [place] [facility] [address] [place] [address] Performin g Lab: [place] [facility] [address] [place] [address] [facility] CBC IMMATURE GRANULOCYTES/ 100 LEUKOCYTES IN BLOOD BY AUTOMATED COUNT 0.2 04/13 Specimen Type: BLOOD No comment entered. Ordering Provider: KYARA PATEL Report Released Date/Time : Apr 12, 2024 03:23 PM Reporting Lab: [place] [facility] [address] [place] [address] Performin g Lab: [place] [facility] [address] [place] [address] [facility] CBC IMMATURE GRANULOCYTES [#/VOLUME] IN BLOOD BY AUTOMATED COUNT 0.01 10*3/u L 0.00 - 0.05 04/13 Specimen Type: BLOOD No comment entered. Ordering Provider: KYARA PATEL Report Released Date/Time : Apr 12, 2024 03:23 PM Reporting Lab: [place] [facility] [address] [place] [address] Performin g Lab: [place] [facility] [address] [place] [address] [facility] COMPREHENSI VE METABOLIC PANEL CREATININE [MASS/VOLUME] IN SERUM OR PLASMA 1.04 mg/dL 0.7 - 1.3 04/13 Specimen Type: PLASMA No comment entered. Ordering Provider: KYARA PATEL Report Released Date/Time : Apr 12, 2024 03:23 PM Reporting Lab: [place] [facility] [address] [place] [address] Performin g Lab: [place] [facility] [address] [place] [address] [place] [facility] COMPREHENSI [place] METABOLIC PANEL UREA NITROGEN [MASS/VOLUME] IN SERUM OR PLASMA 20 mg/dL 9 - 25 04/13 Specimen Type: PLASMA No comment entered. Ordering Provider: KYARA PATEL Report Released Date/Time : Apr 12, 2024 03:23 PM Reporting Lab: [place] [facility] [address] [place] [address] Performin g Lab: [place] [facility] [address] [place] [address] [facility] COMPREHENSI VE METABOLIC PANEL GLUCOSE [MASS/VOLUME] IN SERUM OR PLASMA 73 mg/dL 72 - 99 04/13 Specimen Type: PLASMA No comment entered. Ordering Provider: KYARA PATEL Report Released Date/Time : Apr 12, 2024 03:23 PM Reporting Lab: [place] [facility] [address] [place] [address] Performin g Lab: [place] [facility] [address] [place] [address] [facility] COMPREHENSI VE METABOLIC PANEL SODIUM [MOLES/VOLUME ] IN SERUM OR PLASMA 138 meq/L 136 - 145 04/13 Specimen Type: PLASMA No comment entered. Ordering Provider: KYARA PATEL Report Released Date/Time : Apr 12, 2024 03:23 PM Reporting Lab: [place] [facility] [address] [place] [address] [facility]: [place] [facility] [address] [place] [address] [facility] COMPREHENSI VE METABOLIC PANEL POTASSIUM [MOLES/VOLUME ] IN SERUM OR PLASMA 4.1 meq/L 3.5 - 5 04/13 Specimen Type: PLASMA No comment entered. Ordering Provider: KYARA PATEL Report Released Date/Time : Apr 12, 2024 03:23 PM Reporting Lab: [place] [facility] [address] [place] [address] Performin g Lab: [place] [facility] [address] [place] [address] 8 [facility] COMPREHENSI VE METABOLIC PANEL CHLORIDE [MOLES/VOLUME ] IN SERUM OR PLASMA 106 meq/L 98 - 107 04/13 Specimen Type: PLASMA No comment entered. Ordering Provider: KYARA PATEL Report Released Date/Time : Apr 12, 2024 03:23 PM Reporting Lab: [place] [facility] [address] [place] [address] Performin g Lab: [place] [facility] [address] [place] [address] 8 [facility] COMPREHENSI VE METABOLIC PANEL CARBON DIOXIDE, TOTAL [MOLES/VOLUME ] IN SERUM OR PLASMA 24 meq/L 22 - 31 04/13 Specimen Type: PLASMA No comment entered. Ordering Provider: KYARA PATEL Report Released Date/Time : Apr 12, 2024 03:23 PM Reporting Lab: [place] [facility] [address] [place] [address] Performin g Lab: [place] [facility] [address] [place] [address] 8 [facility] COMPREHENSI VE METABOLIC PANEL CALCIUM [MASS/VOLUME] IN SERUM OR PLASMA 9.4 mg/dL 8.4 - 10.4 04/13 Specimen Type: PLASMA No comment entered. Ordering Provider: KYARA PATEL Report Released Date/Time : Apr 12, 2024 03:23 PM Reporting Lab: [place] [facility] [address] [place] [address] Performin g Lab: [place] [facility] [address] [place] [address] [facility] COMPREHENSI VE METABOLIC PANEL PROTEIN [MASS/VOLUME] IN SERUM OR PLASMA 7.6 g/dL 6 - 8.6 04/13 Specimen Type: PLASMA No comment entered. Ordering Provider: KYARA PTAEL Report Released Date/Time : Apr 12, 2024 03:23 PM Reporting Lab: [place] [facility] [address] [place] [address] Performin g Lab: [place] [facility] [address] [place] [address] 8 [facility] COMPREHENSI VE METABOLIC PANEL ALBUMIN [MASS/VOLUME] IN SERUM OR PLASMA 4.3 g/dL 3.4 - 5 04/13 Specimen Type: PLASMA No comment entered. Ordering Provider: KYARA PATEL Report Released Date/Time : Apr 12, 2024 03:23 PM Reporting Lab: [place] [facility] [address] [place] [address] 8 [facility]formin g Lab: [place] [facility] [address] [place] [address] 8 [facility] COMPREHENSI VE METABOLIC PANEL BILIRUBIN.TOT AL [MASS/VOLUME] IN SERUM OR PLASMA 0.6 mg/dL 0.2 - 1.2 04/13 Specimen Type: PLASMA No comment entered. Ordering Provider: KYARA PATEL Report Released Date/Time : Apr 12, 2024 03:23 PM Reporting Lab: [place] [facility] [address] [place] [address] 8 [facility]formin g Lab: [place] [facility] [address] [place] [address] [facility] COMPREHENSI VE METABOLIC PANEL ALKALINE PHOSPHATASE [ENZYMATIC ACTIVITY/VOLU ME] IN SERUM OR PLASMA 74 U/L 40 - 150 04/13 Specimen Type: PLASMA No comment entered. Ordering Provider: KYARA PATEL Report Released Date/Time : Apr 12, 2024 03:23 PM Reporting Lab: [place] [facility] [address] [place] [address] [facility]formin g Lab: [place] [facility] [address] [place] [address] [facility] COMPREHENSI VE METABOLIC PANEL ASPARTATE AMINOTRANSFER ASE [ENZYMATIC ACTIVITY/VOLU ME] IN SERUM OR PLASMA 21 U/L 5 - 34 04/13 Specimen Type: PLASMA No comment entered. Ordering Provider: KYARA PATEL Report Released Date/Time : Apr 12, 2024 03:23 PM Reporting Lab: [place] [facility] [address] [place] [address] 8 [facility]formin g Lab: [place] [facility] [address] [place] [address] [facility] COMPREHENSI VE METABOLIC PANEL ALANINE AMINOTRANSFER ASE [ENZYMATIC ACTIVITY/VOLU ME] IN SERUM OR PLASMA 21 U/L 8 - 40 04/13 Specimen Type: PLASMA No comment entered. Ordering Provider: KYARA PATEL Report Released Date/Time : Apr 12, 2024 03:23 PM Reporting Lab: [place] [facility] [address] [place] [address] 8 [facility]formin g Lab: [place] [facility] [address] [place] [address] 8 [facility] COMPREHENSI VE METABOLIC PANEL GLOMERULAR FILTRATION RATE/1.73 SQ M.PREDICTED [VOLUME RATE/AREA] IN SERUM, PLASMA OR BLOOD BY CREATININE-BA SED FORMULA (CKD-EPI 2020) 93 04/13 Specimen Type: PLASMA No comment entered. Ordering Provider: KYARA PATEL Report Released Date/Time : Apr 12, 2024 03:23 PM Reporting Lab: [place] [facility] [address] [place] [address] Performin g Lab: [place] [facility] [address] [place] [address] 8 [facility] B12 COBALAMIN (VITAMIN B12) [MASS/VOLUME] IN SERUM OR PLASMA 383 pg/mL 213 - 816 04/13 Specimen Type: SERUM No comment entered. Ordering Provider: KYARA PATEL Report Released Date/Time : Apr 12, 2024 03:23 PM Reporting Lab: [place] [facility] [address] [place] [address] Performin g Lab: [place] [facility] [address] [place] [address] 8 [facility] FOLATE (PB) FOLATE [MASS/VOLUME] IN SERUM OR PLASMA 6.5 ng/mL 7 - 20 04/13 L Specimen Type: SERUM No comment entered. Ordering Provider: KYARA PATEL Report Released Date/Time : Apr 12, 2024 03:23 PM Reporting Lab: [place] [facility] [address] [place] [address] 8 Performin g Lab: [place] [facility] [address] [place] [address] [facility] HGA1C HEMOGLOBIN A1C/HEMOGLOBI N.TOTAL IN BLOOD 5.2 4.0 - 6.0 04/13 Specimen Type: BLOOD No comment entered. Ordering Provider: KYARA PATEL Report Released Date/Time : Apr 12, 2024 03:23 PM Reporting Lab: [place] [facility] [address] [place] [address] 8 Performin g Lab: [place] [facility] [address] [place] [address] [facility] Vital Signs Combined list of inpatient and outpatient Vital Signs from Department of Defense and Veterans Affairs, ranging from 12 months to all on record, depending upon the facility. Vital Sign Value Date Comments Source SYSTOLIC BLOOD PRESSURE 118 07/18/2024 09:49:48 [facility] DIASTOLIC BLOOD PRESSURE 80 07/18/2024 09:49:48 [facility] PULSE OXIMETRY 96 07/18/2024 09:49:48 [facility] WEIGHT 204.4 07/18/2024 09:49:48 [facility] BMI 29 kg/m2 07/18/2024 09:49:48 [facility] PAIN 4 07/18/2024 09:49:48 [facility] TEMPERATURE 97.5 07/18/2024 09:49:48 [facility] PULSE 73 07/18/2024 09:49:48 [facility] RESPIRATION 18 07/18/2024 09:49:48 [facility] SYSTOLIC BLOOD PRESSURE 126 05/16/2024 10:30:00 [facility] DIASTOLIC BLOOD PRESSURE 79 05/16/2024 10:30:00 [facility] PULSE OXIMETRY 97 05/16/2024 10:30:[address] [facility] WEIGHT 203.7 05/16/2024 10:30:00 [facility] BMI 28 kg/m2 05/16/2024 10:30:00 [facility] PAIN 4 05/16/2024 10:30:00 [facility] HEIGHT 71 05/16/2024 10:30:00 [facility] TEMPERATURE 97.4 05/16/2024 10:30:00 [facility] PULSE 71 05/16/2024 10:30:00 [facility] RESPIRATION 20 05/16/2024 10:30:00 [facility] SYSTOLIC BLOOD PRESSURE 135 04/18/2024 13:33:39 [facility] DIASTOLIC BLOOD PRESSURE 84 04/18/2024 13:33:39 [facility] PULSE OXIMETRY 98 04/18/2024 13:33:[address] [facility] WEIGHT 204.3 04/18/2024 13:33:39 [facility] TEMPERATURE 97.7 04/18/2024 13:33:39 [facility] PULSE 73 04/18/2024 13:33:39 [facility] RESPIRATION 18 04/18/2024 13:33:39 [facility] Encounters Combined list of: 1) Encounters from Department of Veterans Affairs facilities going backup to the last 18 months, not all VA inpatient encounters are included; 2) Encounters from the Department of Defense facilities going backup to 280 months. Location Location Details Encounter Type Encounter Number Reason For Visit Attending Provider ADM Date DC Date Status Disposition Source [facility] Perkins([facility]) OUTPATIENT [id number] KASH GREEN 06/11 Released w/o Limitations [facility] Denny([facility] Outpatient Encounter [id number] 04/18 [facility] [place] [facility] Outpatient Encounter [id number] Diagnos is: ICD-10- CM F32.A Depress ion, unspeci fied CHRIS KAYEINE R 04/18 [facility] Outpatient Encounter [id number] 04/26 [facility] N [facility] Outpatient Encounter [id number] 04/29 [facility] [place] [facility] PH1 ASSMT&MGMT NQHP - [id number] Diagnos is: ICD-10- CM F32.A Depress ion, unspeci fied FILIBERTO PECK T 05/02 [place] [facility] Outpatient Encounter [id number] KELLY WOOD 05/13 [facility] OFFICE O/P [place] 60 MIN [id number] Diagnos is: ICD-10- CM F33.1 Major depress virgen disorde r, recurre nt, moderat e BHARAT DE LEON R 05/16 [facility] Outpatient Encounter [id number] KELLY WOOD M 05/16 [facility] N [facility] Outpatient Encounter [id number] 06/09 [facility] PSYTX W PT 60 MINUTES [id number] Diagnos is: ICD-10- CM F32.A Depress ion, unspeci fied SHWETA,CHR ISSOM J 06/23 [facility] Outpatient Encounter [id number] 07/15 [facility] OFFICE O/P EST MOD 30 MIN [id number] Diagnos is: ICD-10- CM F33.0 Major depress vrigen disorde r, recurre nt, mild SCHAY,BHARAT R 07/18 [facility] Outpatient Encounter [id number] 07/19 [facility] Outpatient Encounter [id number] 08/19 [facility] Outpatient Encounter [id number] 08/[address] [facility] Procedures Combined list of: 1) Procedures from [facility] facilities going back up to thelast 18 months, not all [place] non-surgical procedures are included; 2) All procedures from the Department of [facility] facilities. Procedure Procedure Type Code Date Perfomer Comments Tutu estrada No data available for this section Ambulato ry Pharmacy PUNCTURE ASPIRATION OF ABSCESS, HEMATOMA, BULLA, OR CYST 10/15/2000 [facility] WEDGE EXCISION OF SKIN OF NAIL FOLD (EG, FOR INGROWN TOENAIL) 09/29/2000 [facility] Social History Combined list of available smoking, tobacco, and other social history from [facility] and [facility] facilities. Social History Type Response Date Comment Tutu estrada Tobacco smoking status [facility] NC-TOBACCO NEVER USED CIGARETTES 04/18/2024 [facility] History of tobacco use NC-TOBACCO NEVER USED OTHER TYPE 04/18/2024 [facility] This section is an empty social history section. DoD Assessment and Plan Combined list of future care activities from Department of Defense and Veterans Affairs facilities (e.g., assessment and plan notes, appointments, orders, and referrals). Additional future care activities may be listed in the Plan of Care section. Result Assessment and Plan Date Source Assessment and Plan No data available for this section 08/31/2024 [facility] Plan of Care List of future care activities from [facility] of Veterans Affairs facilities. Additional future care activities may be listed in the Assessment and Plan section. Date/Time Care Activity Care Activity Detail Facili ty 09/15/2024 AMBULATORY - MEDICINE AMBULATORY - MEDICI [facility] Functional Status Combined list of recent functional and cognitive assessments recorded at [facility] ([facility] Functional [place] Measurement (FIM) Scale: 1 = Total Assistance (Subject = 0% +), 2 = Maximal Assistance (Subject = 25% +), 3 = Moderate Assistance (Subject = 50% +), 4 = Minimal Assistance (Subject = 75% +), 5 = Supervision, 6 = Modified [place] (Device), 7 = Complete [place] (Timely, Safely). Assessment Date/Time Source Assessment Type Assessment Skill Assessment Score Assessment Details No data available for this section
--- OUTSIDE RECORDS SUMMARY | 2024-08-31 12:32 | XMS_ITS | Clinical Summary ---
Author Organization [facility] Address [address] Attn: [place] [address] Care Team Providers Care Mercerizer Name Role Phone Otis Melchor MD Primary Care Provider Allergies No known active allergies Active Problems Problem Noted Date Diagnosed Date Acute pain of right shoulder 07/12/2015 Pilonidal cyst 08/09/2014 Immunizations Immunization Administration Dates Next Due Influenza Vaccine Split 3+ Yrs IM 12/26/2014 Family History Medical History Relation Name Comments Healthy Father Respiratory Disease Father Breast Cancer Mother Healthy Mother Relation Name Status Comments Father Alive Mother Alive Social History Tobacco Use Types Packs/Day Years Used Date Smoking Tobacco: Never Smokeless Tobacco: Never Alcohol Use Standard Drinks/Week Comments No 0 (1 standard drink = 0.6 oz pur e alcohol) Sex and Gender Information Value Date Recorded Sex Assigned at Not on file 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 Gender Identity Not on file Sexual Orientation Not on file Last Filed Vital Signs Vital Sign Reading Time Taken Comments Blood Pressure 103/71 07/17/2016 11:12 AM CDT Pulse 52 08/27/2015 8:25 AM CDT Temperature 36.5 C (97.7 F) 07/17/2016 10:11 AM CDT Respiratory Rate 16 07/17/2016 11:12 AM CDT Oxygen Saturation - - Inhaled Oxygen Concentration - - Weight 90.7 kg (200 lb) 07/17/2016 10:11 AM CDT Height 180.3 cm (5' 11 ) 07/17/2016 10:11 AM CDT Body Mass Index 27.89 07/17/2016 10:11 AM CDT Plan of Treatment Health Maintenance Due Date Last Done Comments DTAP/TDAP/TD VACCINES (1 - Tdap) 2001 HEPATITIS B VACCINES (1 of 3 - 19+ 3-dose series) 2001 INFLUENZA VACCINE (#1) 2023 12/26/2014 HPV VACCINES Aged Out No longer eligi ble based on patient's age to complete this topic Care Teams Mercerizer Relationship Specialty Start Date End Date Otis Melchor MD [address] [place] [address] [place] [id number] PCP - General Family Practice 07/17/16
--- OUTSIDE RECORDS SUMMARY | 2024-08-31 12:32 | XMS_ITS | Clinical Summary ---
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 Gender Identity Not on file Sexual Orientation Not on file Last Filed Vital Signs Vital Sign Reading Time Taken Comments Blood Pressure 103/71 07/17/2016 11:12 AM CDT Pulse 52 08/27/2015 8:25 AM CDT Temperature 36.5 C (97.7 F) 07/17/2016 10:11 AM CDT Respiratory Rate 16 07/17/2016 11:12 AM CDT Oxygen Saturation 99% 07/17/2016 11:12 AM CDT Inhaled Oxygen Concentration - - Weight 90.7 [...] on patient's age to complete this topic Advance Directives For more information, please contact: [phone] * Full Code (Latest Code Status on File) Date Activated Date Inactivated Comments 08/28/2014 5:54 AM 08/28/2014 12:28 PM * Full Code Date Activated Date Inactivated Comments 08/28/2014 5:52 AM 08/28/2014 5:54 AM Care Teams Gizzard Puller Relationship Specialty Start Date End Date Otis Melchor MD [address] [place] [address] [place] [id number] PCP - General Family Practice 07/17/16
--- NOTE | 2024-08-31 12:54 | W.ED.EXTPRO ---
HPI - Extremity Problem General: Chief complaint: Extremity Injury, Lower Stated complaint: left ankle injury Time Seen by Provider: 08/31/24 12:47 Source: patient Mode of arrival: ambulatory Limitations: no limitations History of Present Illness: 43-year-old male states he was playing tether ball this morning and stepped in a hole twisted his left ankle. States has been swelling to the lateral portion of his ankle and pain since and has been able to ambulate but states is painful to ambulate denies any other injuries denies any knee pain. Associated symptoms: Deny chest pain, fever(s) or rash Related Data Home Medications ?Medication ?Instructions ?Recorded ?Confirmed tramadol 50 mg tablet 50 mg PO BID PRN Pain 10/29/22 04/12/24 tizanidine 4 mg capsule 4 mg PO BID PRN 04/09/23 04/12/24 pantoprazole 40 mg tablet,delayed 40 mg PO DAILY 05/14/23 04/12/24 release fluticasone propionate 50 2 spray intranasal DAILY 05/28/23 04/12/24 mcg/actuation nasal spray,suspension (Flonase Allergy Relief) Previous Rx's ?Medication ?Instructions ?Recorded gabapentin 300 mg capsule 300 mg PO TID pain #90 caps 06/03/23 prazosin 2 mg capsule 4 mg (2 x 2 mg) PO .HS #60 caps 09/28/23 galcanezumab-gnlm 120 mg/mL 120 mg SUBCUT ONCE #1 mL 12/15/23 subcutaneous pen injector (Emgality Pen) sertraline 100 mg tablet (Zoloft) 150 mg (1.5 x 100 mg) PO DAILY #45 01/12/24 tabs bupropion HCl 150 mg tablet,12 hr 150 mg PO DAILY #30 tabs 04/01/24 sustained-release (Wellbutrin SR) hydroxyzine HCl 25 mg tablet 25 mg PO QID PRN anxiety/insomnia 04/01/24 #120 tabs propranolol 10 mg tablet 10 mg PO BID PRN anxiety #60 tabs 04/01/24 trazodone 100 mg tablet 200 mg (2 x 100 mg) PO .HS PRN 04/01/24 insomnia #60 tabs naproxen 500 mg tablet (Naprosyn) 500 mg PO BID PRN pain #20 tabs 08/31/24 Allergies Allergy/AdvReac Type Severity Reaction Status Date / Time No Known Allergies Allergy Verified 08/31/24 12:02 Review of Systems Const: Denies: fever(s), chills, body aches or change in appetite ENMT: Denies: throat pain or dental pain Card: Denies: chest pain Resp: Denies: dyspnea GI: Denies: abdominal pain, nausea, vomiting or diarrhea Musc: Reports: extremity pain; Denies: neck pain or back pain Skin/Breast: Denies: rash Neuro: Denies: headache(s) PFSH ED PFSH: Medical History Hx of primary hypertension Adjustment disorder with mixed anxiety and depressed mood Psychiatric care Social History Smoking and tobacco/nicotine status: never used tobacco/nicotine Second hand smoke exposure: Yes Alcohol intake: current Alcohol intake frequency: other Alcohol type: beer Physical Exam Const: COMMON NORMALS: no acute distress, patient oriented x3 and healthy appearing HENMT: COMMON NORMALS: normocephalic and atraumatic HEAD & SCALP: normocephalic and atraumatic Eye: COMMON NORMALS: conjunctivae normal CONJUNCTIVA: Yes conjunctivae normal Neck/C-Spine: COMMON NORMALS: full ROM and supple Chest: COMMONS NORMALS: normal inspection of the chest Resp: COMMON NORMALS: normal respiratory effort Cardio: COMMON NORMALS: regular rate RATE: regular rate Extremity: NARRATIVE EXTREMITY EXAM: Tenderness noted left lateral ankle slight swelling no obvious deformity Neuro: COMMON NORMALS: patient oriented x3, moves all extremities and no focal motor deficits Psych: COMMON NORMALS: mental status grossly normal, Normal thought process present and cooperative THOUGHT PROCESS: Normal thought process present Skin: COMMON NORMALS: no rashes or lesions noted and no wounds GENERAL SKIN EXAM: no rashes or lesions noted Course Vital Signs: Vital signs: Vital Signs Temperature 97.3 F L 08/31/24 11:58 Pulse Rate 70 08/31/24 11:58 Respiratory Rate 16 08/31/24 11:58 Blood Pressure 124/73 08/31/24 11:58 Pulse Oximetry 97 08/31/24 11:58 Oxygen Delivery Me thod Room Air 08/31/24 11:58 MDM - Extremity (Nontraumatic) Medical Decision Making Patient presents here over the left ankle sprain x-ray shows no fracture we will place an Aroldo wrap he is to weight-bear as tolerated we will get him crutches we will get him follow-up with podiatry return if worsening. Medical Records I reviewed the patient's medical records. Lab Data Radiology Impressions Ankle X-Ray 08/31/24 11:51 IMPRESSION: 1. Lateral soft tissue swelling-no acute fracture. All radiology interpretation(s) finalized by discharge Discharge Plan Discharge Patient Disposition: Home Clinical Impression: Ankle sprain and strain Condition: Stable Prescriptions: New naproxen [Naprosyn] 500 mg tablet 500 mg PO BID PRN (Reason: pain) Qty: 20 0RF No Action pantoprazole 40 mg tablet,delayed release (DR/EC) 40 mg PO DAILY prazosin 2 mg capsule 4 mg PO .HS Qty: 60 2RF tramadol 50 mg tablet 50 mg PO BID PRN (Reason: Pain) tizanidine 4 mg capsule 4 mg PO BID PRN fluticasone propionate [Flonase Allergy Relief] 50 mcg/actuation spray,suspension 2 spray intranasal DAILY Rx Instructions: administer into each nostril gabapentin 300 mg capsule 300 mg PO TID Qty: 90 0RF Emgality Pen 120 mg/mL pen injector 120 mg SUBCUT ONCE Qty: 1 5RF sertraline [Zoloft] 100 mg tablet 150 mg PO DAILY Qty: 45 2RF bupropion HCl [Wellbutrin SR] 150 mg tablet sustained-release 12 hr 150 mg PO DAILY Qty: 30 2RF hydroxyzine HCl 25 mg tablet 25 mg PO QID PRN (Reason: anxiety/insomnia) Qty: 120 2RF propranolol 10 mg tablet 10 mg PO BID PRN (Reason: anxiety) Qty: 60 2RF trazodone 100 mg tablet 200 mg PO .HS PRN (Reason: insomnia) Qty: 60 2RF Discharge Orders: Discharge ED (Routine); Ordered 08/31/24 Ordered By: Chaim Simmons Referrals: Presley Melchor [Primary Care Provider, Family Practice] Denzel Torres DPM [Physician, Podiatry] - 4-7 days Discharge Diet: Advance as tolerated Discharge Activity: Limit activity as instructed Patient Instructions: Ankle Sprain (ED) Print Language: Thai Coding Level of Care Code ED Satellite Tv Technician for Kennedi [place]
--- NOTE | 2024-09-06 08:30 | DCPLANNER ---
Message sent to podiatry for follow up- Patient presents here over the left ankle sprain x-ray shows no fracture we will place an Aroldo wrap he is to weight-bear as tolerated we will get him crutches we will get him follow-up with podiatry return if worsening.
== END 2024-08-31 13:17 | disposition home or self-care (01) ==
PROVIDERS: Emergency Provider Emergency Medicine; PCP Family Medicine
DX: S93.402A Sprain of unspecified ligament of left ankle, initial encounter (principal); X58.XXXA Exposure to other specified factors, initial encounter; I10 Essential (primary) hypertension
CPT/HCPCS: 73610; 99283; E0114